=== PATIENT | female | born 1985 | race African-American/Black ===

== ENCOUNTER 2019-01-13 15:40 | Emergency (ER) | payer SELFPAY ==
[2019-01-13] MEDS ORDERED: LIDOCAINE 1% INJ-PF (10 MG/ML) 30 ML SDV INJ ONE (15:58)
--- NOTE | 2019-01-13 16:01 | ER Document Report ---
HPI - HPI Time Seen by Provider: 01/13/19 15:54 Pain Level: 4 Notes: Patient is a 33-year-old female with no significant past medical history who presents to the emergency department complaining of right index pain and swelling distally with possible infection over the last couple days. Patient does not recall any injury. She has noticed an abscess to the area that is not draining. Denies drug allergies. No other concerns or complaints. No history of MRSA. Denies any headache, fever, URI, sore throat, chest pain, palpitations, syncope, cough, shortness of breath, wheeze, dyspnea, abdominal pain, nausea/vomiting/diarrhea, urinary retention, dysuria, hematuria, or rash. - ROS Systems Reviewed and Negative: Yes All other systems reviewed and negative - REPRODUCTIVE Reproductive: DENIES: : Past Medical History - Social History Smoking Status: Never Smoker Family History: Reviewed & Not Pertinent Vertical Provider Document - CONSTITUTIONAL Agree With Documented VS: Yes Notes: PHYSICAL EXAMINATION: GENERAL: Well-appearing, well-nourished and in no acute distress. LUNGS: Breath sounds clear to auscultation bilaterally and equal. No wheezes rales or rhonchi. HEART: Regular rate and rhythm without murmurs, rubs, gallops. Musculoskeletal: Rt index finger: + paronychia noted with fluctuance/abscess. + tenderness associated. No felon. FROM to passive/active. Strength 5+/5. N/V intact distal. No bony tenderness or streaks noted. Extremities: No cyanosis, clubbing, or edema b/l. Peripheral pulses 2+. Capillary refill less than 3 seconds. NEUROLOGICAL: Normal speech, normal gait. Normal sensory, motor exams PSYCH: Normal mood, normal affect. SKIN: see above - INFECTION CONTROL TRAVEL OUTSIDE OF THE [place] IN LAST 30 DAYS: No Course - Re-evaluation Re-evalutation: 01/13/19 Patient is an afebrile, well-hydrated, 33-year-old female who presents to the e mergency department with a paronychia rt index finger needing incision and drainage. Vitals are acceptable without significant tachycardia, tachypnea, or hypoxia. PE is otherwise unremarkable. Patient is nontoxic-appearing and is tolerating p.o. without difficulty. Incision and drainage was performed without any complications. Wound dressing was placed and wound instructions reviewed. Wound culture was obtained. No further labs or imaging warranted. Low suspicion for any felon, sepsis, meningitis, SJS, osteomyelitis, or other systemic emergent condition at this time. Patient to monitor symptoms for any acute changes and seek medical attention if so. Recheck with your PCM in 2-3 days. Return to the ED with any worsening/concerning symptoms as reviewed. Patient is in agreement. - Vital Signs Vital signs: Temp Pulse Resp BP Pulse Ox 98.1 F 101 H 16 119/81 100 01/13/19 15:54 01/13/19 15:54 01/13/19 15:54 01/13/19 15:54 01/13/19 15:54 Procedures - Incision and Drainage Right Finger 2nd digit Time completed: 16:20 Type: Simple Anesthetic type: 1% Lidocaine mL's of anesthetic: 6 - digital block I&D procedure: Sterile dressing applied, Other - chlorhexadine/saline Incision Method: Incision made by scalpel Amount/type of drainage: moderate purulent Discharge - Discharge Clinical Impression: Paronychia of right index finger Condition: Stable Disposition: HOME, SELF-CARE Instructions: Paronychia (OM), Epsom Salt Soaks ([facility]) Additional Instructions: Keep the skin clean Wash with soap and water Tylenol/ibuprofen if needed Triple antibiotic ointment daily Take medication as directed Epsom salt soaks Monitor for any worsening symptoms Recheck with your PCM in 2-3 days Consider consult with Orthopedics for ongoing/worsening symptoms Return to the ED with any worsening symptoms and/or development of fever, headache, chest pain, palpitations, syncope, shortness of breath, trouble breathing, abdominal pain, n/v/d, abscess, purulent discharge, red streaks, worsening swelling, or other worsening symptoms that are concerning to you. Prescriptions: Cephalexin Monohydrate [Keflex 500 mg Capsule] 500 mg PO TID #30 capsule Sulfamethoxazole/Trimethoprim [Bactrim Ds Tablet] 1 each PO BID #20 tablet Referrals: HECTOR CRAMER MD [ACTIVE STAFF] - Follow up as needed PETEY ARROYO DO [ACTIVE STAFF] - Follow up as needed
[2019-01-13] MEDS ORDERED: ACETAMINOPHEN 325 MG TABLET PO ONE (17:13)
[2019-01-13] MEDS ORDERED: MORPHINE SULFATE IR 15 MG TABLET PO ONE (17:33)
[2019-01-13 17:59] VITALS: BP 104/81
[2019-01-13] MEDS ORDERED: OXYCODONE-ACETAMINOPHEN 5-325 MG TABLET PO ONE (18:03)
== END 2019-01-13 18:25 | disposition home or self-care (01) ==
LOC: ER 15:40
PROC: 0H9FXZZ Drainage of Right Hand Skin, External Approach (ICD-10-PCS; principal; 2019-01-13)
DX: L03.011 Cellulitis of right finger (principal); L02.511 Cutaneous abscess of right hand; M79.644 Pain in right finger(s)
CPT/HCPCS: 99283; 87070; 87205; 87186; 26010; J3490

== ENCOUNTER 2020-10-09 23:05 | Inpatient (IN) | payer MEDICAID, OTHER ==
[2020-10-10 00:02] LABS: T.VAGINALIS (WET MOUNT) NO TRICHOMONAS SEEN; WBCS (WET MOUNT) 3+ WBCS SEEN; YEAST (WET MOUNT) BUDDING YEAST SEEN
[2020-10-10 00:03] LABS: BACTERIA (WET MOUNT) 4+ BACTERIA SEEN; EPITHELIALS (WET MOUNT) 4+ EPITHELIALS SEEN; RBCS (WET MOUNT) RARE RBCS SEEN
[2020-10-10] MEDS ORDERED: OXYTOCIN 10 UNIT/ML VIAL ONE (00:10)
[2020-10-10] MEDS ORDERED: MISOPROSTOL 0.2 MG TABLET ONE (00:10)
[2020-10-10] MEDS ORDERED: PENICILLIN G-K 5 MILLION UNIT VIAL ONE ×2 (00:10→04:26)
[2020-10-10] MEDS ORDERED: LIDOCAINE 1% INJ-PF (10 MG/ML) 30 ML SDV ONE (00:10)
[2020-10-10] MEDS ORDERED: OXYTOCIN/0.9 % SODIUM CHLORIDE 30 UNIT/500 ML RTUINJ ONE (00:10)
[2020-10-10 00:11] LABS: ABSOLUTE LYMPHOCYTES (AUTO) 2.2 10^3/uL (0.5-4.7); ABSOLUTE MONOCYTES (AUTO) 0.7 10^3/uL (0.1-1.4); ABSOLUTE NEUT (AUTO) 7.7 10^3/uL (1.7-8.2); BASOPHILS % (AUTO) 0.2 % (0-2); EOSINOPHILS % (AUTO) 0.1 % (0-6); HEMATOCRIT 33.1 % (36.0-47.0); HEMOGLOBIN 10.7 g/dL (12.0-15.5); LYMPHOCYTES % (AUTO) 20.4 % (13-45); MEAN CORPUSCULAR HEMOGLOBIN 26.1 pg (27.0-33.4); MEAN CORPUSCULAR HGB CONC 32.4 g/dL (32.0-36.0); MEAN CORPUSCULAR VOLUME 80 fl (80-97); MONOCYTES % (AUTO) 6.3 % (3-13); PLATELET COUNT 304 10^3/uL (150-450); RED BLOOD COUNT 4.12 10^6/uL (3.72-5.28); RED CELL DISTRIBUTION WIDTH 13.9 % (11.5-14.0); TOTAL CELLS COUNTED % (AUTO) 100 %; WHITE BLOOD COUNT 10.6 10^3/uL (4.0-10.5)
[2020-10-10] MEDS ORDERED: BETAMET ACET/BETAMET NA INJ 6 MG/1 ML ONE (00:19)
[2020-10-10] MEDS ORDERED: FENTANYL CITRATE INJ/PF 100 MCG/2 ML AMPUL ONE (00:23)
[2020-10-10 00:24] LABS: APPEARANCE,URINE SLIGHTLY-CLOUDY; BILIRUBIN,URINE NEGATIVE (NEGATIVE); COLOR,URINE YELLOW; GLUCOSE, URINE NEGATIVE (NEGATIVE); KETONES,URINE 80 mg/dL (NEGATIVE); LEUKOCYTE ESTERASE,URINE NEGATIVE (NEGATIVE); NITRITE,URINE NEGATIVE (NEGATIVE); PROTEIN,URINE NEGATIVE (NEGATIVE); URINE SPECIFIC GRAVITY 1.018
[2020-10-10] MEDS ORDERED: NORMAL SALINE 250 ML IV PRN (00:28)
[2020-10-10] MEDS ORDERED: PENICILLIN G POTASSIUM 5,000,000 UNIT in DEXTROSE 5%-WATER 100 ML IV ONE (00:28)
[2020-10-10] MEDS ORDERED: RINGERS SOLUTION,LACTATED 1,000 ML IV PRN (00:28)
[2020-10-10] MEDS ORDERED: RINGERS SOLUTION,LACTATED 1,000 ML IV ONE (00:28)
[2020-10-10] MEDS ORDERED: EPHEDRINE SULFATE INJ 50 MG/1 ML AMPULE ONE (00:28)
[2020-10-10] MEDS ORDERED: ROPIVACAINE HCL 0.2% INJ/PF (2 MG/ML) 20 ML SDV ONE (00:29)
[2020-10-10] MEDS ORDERED: FENTANYL/BUPIVACAINE/NS/PF 300 MCG/150 ML RTUINJ EPI ONE (00:29)
[2020-10-10] MEDS ORDERED: BETAMET ACET/BETAMET NA INJ 6 MG/1 ML IM ONE (00:32)
[2020-10-10] MEDS ORDERED: FENTANYL CITRATE INJ/PF 100 MCG/2 ML AMPUL IV ONE (00:32)
[2020-10-10] MEDS ORDERED: ONDANSETRON HCL INJ/PF 4 MG/2 ML SDV IV PRN (00:36)
--- NOTE | 2020-10-10 00:46 | Admission Physical ---
Datetime Report Generated by CPN: 10/10/2020 00:46 CURRENT ADMISSION Chief Complaint: Uterine Contractions Indication for Induction: Not Applicable Admit Impression : Term, Intrauterine ; Active Labor; Intact Membranes Admit Plan: Admit to Unit; Initiate Labor Protocol ALLERGIES Medication Allergies: No Known Allergies (02/04/2014) PHYSICAL EXAM General: Normal HEENT: Normal Neurologic: Normal Thyroid: Deferred Heart: Normal Lungs: Normal Breast: Deferred Back: Normal Abdomen: Normal Genitourinary Exam: Normal Extremities: Normal DTRs: Normal Pelvic Type: Adequate Vital Signs: Reviewed VAGINAL EXAM Dilatation: 6 Effacement: 90 Station: bb Contraction Comments: q2 MEMBRANES Membranes: Intact FETUS A Monitoring: External US FHR- Baseline: 125 Variability: Moderate 6-25bpm Accelerations: 15X15 FHR Category: Category I Presentation: Vertex Admit Comment: 35yo here [facility] due to contractions since 2099 while incarcerated. She has had no care. She reports that she had DEBBIE 12/01/2020 by LMP but no US or Care. She had a C/S in 2013 with documented Low transverse incision (indication was OP, NRFHRTs, 6cm at 41wks). Reviewed TOLAC vs C/S. She has elected or now to proceed with TOLAC. GBS unknown - PCN for GBS prophy. No care labs ordered. She denies h/o HSV and denies prodrome or outbreak. Admit and anticipate /TOLAC. She desires pain medication. R/B/A reviewed. INFORMED CONSENT Informed Consent Obtained: Vaginal Delivery; Risks, Benefits and Alternatives Discussed Signature: with User ID: [email or web address]
[2020-10-10 00:57] LABS: URINE AMPHETAMINES SCREEN NEGATIVE; URINE BARBITURATES SCREEN NEGATIVE; URINE BENZODIAZEPINES SCREEN NEGATIVE; URINE MARIJUANA (THC) SCREEN NEGATIVE; URINE METHADONE SCREEN NEGATIVE; URINE PHENCYCLIDINE SCREEN NEGATIVE
[2020-10-10 01:03] LABS: URINE COCAINE SCREEN UNCONFIRMED POSITIVE
--- NOTE | 2020-10-10 01:14 | L&D Progress Notes ---
PROGRESS NOTES Datetime Report Generated by CPN: 10/10/2020 01:14 PROGRESS NOTE Informed Consent Obtained: Vaginal Delivery; Risks, Benefits and Alternatives Discussed Comment: Cocaine positive and opiate positive in urine. Pt reports no cocaine since prior to thanksgiving and used cocaine several times during . Opiates are from the percocet she gets from her mom. Patient now that she is comfortable desires to proceed with continued attempt at vaginal delivery. She is resting. Her answers are inconsistent when requesting medical history. VAGINAL EXAM Dilatation: 6 Effacement: 90 Station: bb Contractions: q2 MEMBRANES Membranes: Intact FETUS A Presentation: Vertex SIGNATURE SIGNATURE: [id number];13,[id number] Signature: with User ID: [email or web address]
[2020-10-10 01:58] LABS: CHLAM PCR NOT DETECTED (NOT DETECT)
[2020-10-10 04:38] LABS: APPEARANCE,URINE CLEAR; BILIRUBIN,URINE NEGATIVE (NEGATIVE); COLOR,URINE YELLOW; GLUCOSE, URINE NEGATIVE (NEGATIVE); KETONES,URINE 80 mg/dL (NEGATIVE); LEUKOCYTE ESTERASE,URINE NEGATIVE (NEGATIVE); NITRITE,URINE NEGATIVE (NEGATIVE); PROTEIN,URINE 30 mg/dL (NEGATIVE); UROBILINOGEN,URINE NEGATIVE mg/dL (<2.0)
[2020-10-10] MEDS: PENICILLIN G POTASSIUM 2,500,000 UNIT in DEXTROSE 5%-WATER 50 ML IV SCH ×2 (07:45→09:39)
[2020-10-10] MEDS ORDERED: LOPERAMIDE HCL 2 MG CAPSULE ONE (08:20)
[2020-10-10] MEDS ORDERED: LOPERAMIDE HCL 2 MG CAPSULE PO ONE (08:22)
[2020-10-10] MEDS ORDERED: LOPERAMIDE HCL 2 MG CAPSULE PO PRN (08:22)
--- NOTE | 2020-10-10 08:45 | Delivery Summary ---
Del Sum A-C Datetime Report Generated by CPN: 10/10/2020 08:45 DELIVERY PERSONNEL DELIVERY PERSONNEL: [id number] Delivery Doctor:: Jami King MD Labor and Delivery Nurse:: CARLEEN Simpson Nursery Nurse:: Abigail Eddy RN Nursery Nurse:: Madeline Holm RN Excel Expert/CLIMBING GUIDE: Deneen Green, ST MATERNAL INFORMATION Delivery Anesthesia: Epidural Medications After Delivery: Pitocin 30 Units in 500ml NS/D5W; Cytotec 1000mcg Per Rectum/Vagina Estimated Blood Loss (ml): 50 Delivery QBL: 50 Maternal Complications: None Other Maternal Complications: SROM 0345 particulate mec, pos UDS Provider Comments: VFI delivered in [place] with compound cord. Shoulders and body delivered without difficulty. Baby to maternal abdomen for NRP and nursery personnel present due to suspect 36wks, no care and SROM at 0345 with particulate meconium. Baby crying and with good tone on maternal abdomen and cord doubly clamped and cut after stop pulsating. baby to warmer with Nursery personnel. Placenta delivered spontaneously intact. Placental membranes and umbilical heavily stained with meconium. Placenta and cord sent for pathology. Cord gases not obtained as placenta was in vagina and delivered by the time baby was recieving recussitation. Baby to NICU. No perineal lacerations. 1000mcg Cytotec placed per rectum for uterine tone. Good hemostasis. FF at U. LABOR SUMMARY EDC: 11/05/2020 00:00 No. Babies in Womb: 1 Attempted: Yes Labor Anesthesia: Epidural LABOR INFORMATION Reason for Induction: Not Applicable Onset of Labor: 10/09/2020 21:00 Complete Dilatation: 10/10/2020 04:15 Oxytocin: N/A Group B Beta Strep: unk Antibiotics # of Doses: 1 Antibiotics Time of Last Dose: 10/10/2020 00:25 Name of Antibiotic Given: penicillin Steroids Given: Partial Course; < 24 Hours before Delivery Reason Steroids Not Administered: Not Applicable MEMBRANES Membranes Rupture Method: Spontaneous Rupture of Membranes: 10/10/2020 03:45 Length of Rupture (hr): 0.72 Amniotic Fluid Color: Moderate Meconium Amniotic Fluid Amount: Small Amniotic Fluid Odor: None STAGES OF LABOR Stage 1 hr: 7 Stage 1 min: 15 Stage 2 hr: 0 Stage 2 min: 13 Stage 3 hr: 0 Stage 3 min: 3 Total Time in Labor hr: 7 Total Time in Labor min: 31 VAGINAL DELIVERY Episiotomy: None Laceration #1: None Laceration Extension #1: N/A Laceration Repair: Not Applicable Sponge Count Correct: Yes Sharps Count Correct: Yes CSECTION DELIVERY Primary Indication: N/A Secondary Indication: N/A CSection Incidence: N/A Labor: N/A Elective: N/A BABY A INFORMATION Infant Delivery Date/Time: 10/10/2020 04:28 Method of Delivery: Vaginal Nurse Controlled Delivery: No Born in Route : No : Successful Forceps: N/A Vacuum Extraction: N/A Shoulder Dystocia : No PRESENTATION/POSITION BABY A Presentation: Cephalic Cephalic Presentation: Vertex Vertex Position: Left Occipital Anterior Breech Presentation: N/A PLACENTA INFORMATION BABY A Placenta Delivery Time : 10/10/2020 04:31 Placenta Method of Delivery: Spontaneous Placenta Status: Delivered SCORES BABY A Heart Rate 1 min: >100 bpm Resp Effort 1 min: Good Cry Reflex Irritability 1 min: Cough or Sneeze or Pulls Away Muscle Tone 1 min: Some Flexion of Extremities Color 1 min: Blue/Pale Resuscitation Effort 1 min: Tactile Stimulation; PPV/NCPAP SCORE 1 MIN: 7 Heart Rate 5 min: Slow, Below 100 bpm Resp Effort 5 min: Absent Reflex Irritability 5 min: Cough or Sneeze or Pulls Away Muscle Tone 5 min: Active Motion Color 5 min: Blue/Pale Resuscitation Effort 5 min: Tactile Stimulation; Oxygen; PPV/NCPAP SCORE 5 MIN: 5 Heart Rate 10 min: >100 bpm Resp Effort 10 min: Slow, Irregular Reflex Irritability 10 min: Cough or Sneeze or Pulls Away Muscle Tone 10 min: Active Motion Color 10 min: Completely [place] Resuscitation Effort 10 min: Oxygen; PPV/NCPAP SCORE 10 MIN: 9 INFANT INFORMATION BABY A Gestational Age at Delivery: 36.2 Gestational Status: Late - 34- 36.6 Weeks Infant Outcome : Liveborn Infant Condition : Stable Infant Sex: Female WEIGHT/LENGTH BABY A Birthweight (gm): 2810 Infant Weight (lb): 6 Infant Weight (oz): 3 Length (in): 19.25 Length (cm): 48.90 CORD INFORMATION BABY A No. Cord Vessels: 3 Nuchal Cord : N/A Cord Blood Taken: Yes-For Eval (Mom's Blood Type - or O+) Suction: Mouth; Nose ASSESSMENT BABY A Complications: Meconium Physical Findings- Other: see initial nursery assessment Respirations: Intercostal Retractions Manager Highway/ALS Called : Yes Infant Care By: L. Eddy, RN Transferred To: NICU BABY B INFORMATION : N/A SIGNATURES Signature: with User ID: [email or web address]
--- NOTE | 2020-10-10 08:45 | Birth Certificate Data ---
Cert Data Datetime Report Generated by CPN: 10/10/2020 08:45 CERTIFICATE DATA Delivery Provider: Jami King MD (10/10/2020 01:15:Vilma Wang RN) 47a. Care: No (10/10/2020 01:15:CARLEEN Simpson) 47b. Date of First Visit: 10/10/2020 00:00 (10/10/2020 01:15:CALREEN Simpson) 47c. Date of Last Visit: 10/10/2020 00:00 (10/10/2020 01:15:CARLEEN Simpson) 47d. Number of Visits: 0 (10/10/2020 01:15:CARLEEN Simpson) 48a. Number of Prev Live Births: 1 (10/10/2020 01:15:CARLEEN Simpson) 48b. Now Livin (10/10/2020 01:15:CARLEEN Simpson) 48c. Live Births Now : 0 (10/10/2020 01:15:QS system process) 48d. Date of Last Live : 05/22/2014 00:00 (10/10/2020 01:15:Lachelle Tapia, RNC) 48e. Losses: 0 (10/10/2020 01:15:Lachelle Bellavance, RNC) RISK FACTORS IN THIS 49a. Diabetes: No (10/10/2020 01:15:Lachelle Bellavance, RNC) 49b. Hypertension: No (10/10/2020 01:15:Lachelle Bellavance, RNC) 49c. Previous Births: 0 (10/10/2020 01:15:Lachelle Jeannce, RNC) 49d. Stillborns: No (10/10/2020 01:15:Lachelle Bellavance, RNC) 49d. IUGR: No (10/10/2020 01:15:Lachelle Bellavance, RNC) 49e. Infertility Treatment: No (10/10/2020 01:15:Lachelle Bellavance, RNC) 49f. Previous Cesareans: 1 (10/10/2020 01:15:Lachelle Bellavance, RNC) Mother's Height 50b. Height Inches: 64 (10/10/2020 01:38:QS system process) Mother's Weight 51b. Weight at Delivery (lbs): 152 (10/10/2020 01:38:QS system process) 52. Dt Last Normal Menses Began: 12/01/2020 00:00 (10/10/2020 01:15:CARLEEN Simpson) Infections Present/Treated 53a. Gonorrhea: No (10/10/2020 01:15:CARLEEN Simpson) Results this Hospital Visit : Negative (10/10/2020 01:15:Rebeka Parada RN) 53b. Syphilis: No (10/10/2020 01:15:CARLEEN Simpson) 53c. Chlamydia: No (10/10/2020 01:15:CARLEEN iSmpson) Results this Hospital Visit: Negative (10/10/2020 01:15:Rebeka Parada RN) 53d. Hepatitis B: No (10/10/2020 01:15:Lachelle Tapia RNC) Results this Hospital Visit: Negative (10/10/2020 01:15:Lachelle Tapia, RNC) 53h. Mother Tested for HBsAG: Yes (10/10/2020 01:15:Lachelle Tapia, RNC) 53i. Date Tested: 10/10/2020 00:00 (10/10/2020 01:15:Lachelle Tapia, RNC) 53j. Test Result: Negative (10/10/2020 01:15:Lachelle Tapia, RNC) Obstetric Procedures 54a, b, c. Obstetric Procedures: None (10/10/2020 01:15:Lachelle Courtneye, RNC) Cigarette Smoking Cigarette Smoking: Never Smoker. [id number] (10/10/2020 01:15:Lachelle Bellnewnce, RNC) Onset of Labor 56a. PROM >12 Hrs: 0.72 (10/10/2020 01:15:QS system process) 56b. Precipitous Labor <3 Hrs: 7 (10/10/2020 01:15:QS system process) 56c. Prolonged Labor > 20 Hrs: 7 (10/10/2020 01:15:QS system process) 57a. Induction of Labor: N/A (10/10/2020 01:15:Vilma Wang RN) 57c. Non-Vertex Presentation A: Vertex (10/10/2020 01:15:Vilma Wang RN) 57d. Steroids - Lung Mat: Partial Course; < 24 Hours before Delivery (10/10/2020 01:15:Jami King MD ([facility])) 57d. Steroids - Lung Mat: Celestone 12mg IM - Dose 1 (10/10/2020 00:25:CARLEEN Simpson) 57d. Steroids - Lung Mat: Not Applicable (10/10/2020 01:15:CARLEEN Simpson) 57e. Antibiotics During Labor: PCN (10/10/2020 01:15:Jami King MD ([facility])) 57e. Antibiotics During Labor: 10/10/2020 00:25 (10/10/2020 01:15:CARLEEN Simpson) 57g. Moderate/Heavy Meconium: Moderate Meconium (10/10/2020 03:45:CARLEEN Simpson) 57h. Intolerance of Labor: N/A (10/10/2020 01:15:Vilma Wang RN) : N/A (10/10/2020 01:15:Vilma Wang RN) 57i. Epidural/Spinal Anesthesia: Epidural (10/10/2020 01:15:CARLEEN Simpson) Method of Delivery 58a. Forceps - Unsuccessful A: N/A (10/10/2020 01:15:Vilma Wang RN) 58b. Vacuum - Unsuccessful A: N/A (10/10/2020 01:15:Vilma Wang RN) 58c. Presentation at 58c. Presentation at - A : Vertex (10/10/2020 01:15:Vilma Wang RN) 58c. Presentation at - A : N/A (10/10/2020 01:15:Vilma Wang RN) 58c. Presentation at - A : Cephalic (10/10/2020 03:45:Lachelle Tapia [facility]) Final Route and Method of Del 58d. Baby A Route/Delivery: Vaginal (10/10/2020 01:15:Vilma Wang RN) 58e. Trial of Labor Attempted: Yes (10/10/2020 01:15:Lachelle Tapia [facility]) 58e. Trial of Labor Attempted A: Successful (10/10/2020 01:15:Vilma Wang RN) 58e. Trial of Labor Attempted B: N/A (10/10/2020 01:15:Lachelle Tapia [facility]) Maternal Morbidity 59b. 3rd or 4th Degree Lacs: None (10/10/2020 01:15:Jami King MD ([facility])) Birthweight Baby A: 2810 (10/10/2020 01:15:Abigail Eddy, RN) 60a. Pounds : 6 (10/10/2020 01:15:QS system process) 60b. Ounces: 3 (10/10/2020 01:15:QS system process) 61. GA at Delivery Baby A: 36.2 (10/10/2020 01:15:Vilma Felipe, RN) : Late - 34- 36.6 Weeks (10/10/2020 01:15:QS system process) 62a. 5 Minute Baby A: 5 (10/10/2020 01:15:QS system process) 62b. 10 Minute Baby A: 9 (10/10/2020 01:15:QS system process)
--- NOTE | 2020-10-10 09:31 | RADIOLOGY REPORT (SQ) ---
EXAM DESCRIPTION: U/S OB LIMITED IMAGES COMPLETED DATE/TIME: 10/10/2020 1:25 am REASON FOR STUDY: dating, no pnc, placenta, position, fluid, cvx winnie COMPARISON: None. TECHNIQUE: Limited transvaginal grayscale ultrasound for evaluation of specific requested obstetrica l parameters. LIMITATIONS: None. FINDINGS: NIVIA: 1.9 cm. FHR: 137 beats per minute. PRESENTATION: Cephalic. PLACENTA: Fundal ANATOMY: Estimated weight 3064 g OTHER: No other significant findings. IMPRESSION: LIMITED OBSTETRICAL ULTRASOUND WITH MEASURED PARAMETERS DELINEATED ABOVE. Trimester of : Third trimester - 28 weeks to delivery. TECHNICAL DOCUMENTATION: JOB ID: [id number] 2010 [employer]- All Rights Reserved Reading location - IP/workstation name: [email or web address]
[2020-10-10] MEDS ORDERED: ACETAMINOPHEN 650 MG SUPP.RECT PR PRN (09:44)
[2020-10-10] MEDS ORDERED: MEASLES,MUMPS&RUBELLA VACC/PF 0.5 ML VIAL SUBCUT PRN (09:44)
[2020-10-10] MEDS ORDERED: DIPHENHYDRAMINE HCL 25 MG CAPSULE PO PRN (09:44)
[2020-10-10] MEDS ORDERED: PSEUDOEPHEDRINE HCL 30 MG TABLET PO PRN (09:44)
[2020-10-10] MEDS ORDERED: PROMETHAZINE HCL 25 MG TABLET PO PRN (09:44)
[2020-10-10] MEDS ORDERED: BENZOCAINE/MENTHOL AEROSOL SPRAY 56 ML TOP PRN (09:44)
[2020-10-10] MEDS ORDERED: PROMETHAZINE HCL INJ 25 MG/1 ML VIAL IV PRN (09:44)
[2020-10-10] MEDS ORDERED: OXYTOCIN/0.9 % SODIUM CHLORIDE 30 UNIT/500 ML RTUINJ IV PRN (09:44)
[2020-10-10] MEDS ORDERED: ZOLPIDEM TARTRATE 5 MG TABLET PO PRN (09:44)
[2020-10-10] MEDS ORDERED: NA PHOS,M-B/NA PHOS,DI-BA (ADULT) 133 ML ENEMA PR PRN (09:44)
[2020-10-10] MEDS ORDERED: GLYCERIN/WITCH HAZEL LEAF 1 EACH MED..WIPE TP PRN (09:44)
[2020-10-10] MEDS ORDERED: DIBUCAINE 1% OINTMENT 28 GM TP PRN (09:44)
[2020-10-10] MEDS ORDERED: ACETAMINOPHEN WITH CODEINE #3 TABLET PO PRN ×2 (09:44)
[2020-10-10] MEDS ORDERED: MAGNESIUM HYDROXIDE SUSP 30 ML UDCUP PO PRN (09:44)
[2020-10-10] MEDS ORDERED: DIPH/PERTUSS(ACELL)/TETANUS VAC/PF 0.5 ML SYR (>=10YO) IM PRN (09:44)
[2020-10-10] MEDS ORDERED: PROMETHAZINE HCL 25 MG SUPP.RECT PR PRN (09:44)
[2020-10-10] MEDS: PRENATAL VITAMIN W DHA CAPSULE PO SCH (11:11)
[2020-10-10] MEDS: DOCUSATE SODIUM 100 MG CAPSULE PO SCH ×2 (11:11→17:41)
[2020-10-10] MEDS: SENNOSIDES/DOCUSATE 8.6-50 MG 1 EACH TABLET PO SCH (11:11)
--- NOTE | 2020-10-10 12:18 | PDOC PROGRESS REPORT ---
Subjective-OB Progress Note for:: 10/10/20 Subjective: Pt doing well, no complaints. States pain is controlled, voiding w/o difficulty, reg diet, light bleeding w/o clots. Physical Exam (OB) Vital Signs: Intake & Output 10/09/20 10/10/20 10/11/20 06:59 06:59 06:59 Weight 69.4 kg - Maternal Morbidity 59. Maternal Morbidity (serious complications experinced by the mother associated with labor and delivery: None of the above - Lochia Lochia Amount: Small 10-25 ml Lochia Color: Rubra/Red - Abdomen Description: Soft Fundal Description: Firm Fundal Height: u/u - u/2 Objective-Diagnostic Laboratory: 10/09/20 23:48 10/09/20 10/09/20 10/09/20 23:20 23:48 23:48 WBC 10.6 H RBC 4.12 Hgb 10.7 L Hct 33.1 L MCV 80 MCH 26.1 L MCHC 32.4 RDW 13.9 Plt Count 304 Seg Neutrophils % 73.0 Urine Color YELLOW Urine Appearance SLIGHTLY-CLOUDY Urine pH 7.0 Ur Specific [place] 1.018 Urine Protein NEGATIVE Urine Glucose (UA) NEGATIVE Urine Ketones 80 H Urine Blood NEGATIVE Urine Nitrite NEGATIVE Ur Leukocyte Esterase NEGATIVE Urine WBC (Auto) 1 Urine RBC (Auto) 5 Blood Type O POSITIVE Antibody Screen NEGATIVE 10/10/20 01:10 WBC RBC Hgb Hct MCV MCH MCHC RDW Plt Count Seg Neutrophils % Urine Color YELLOW Urine Appearance CLEAR Urine pH 6.0 Ur Specific [place] 1.030 Urine Protein 30 H Urine Glucose (UA) NEGATIVE Urine Ketones 80 H Urine Blood NEGATIVE Urine Nitrite NEGATIVE Ur Leukocyte Esterase NEGATIVE Urine WBC (Auto) 1 Urine RBC (Auto) Blood Type Antibody Screen Assessment and Plan(PN) - Assessment and Plan (1) Active labor Qualifiers: Fetus number: single or unspecified fetus Qualified Code(s): O60.10X0 - labor with delivery, unspecified trimester, not applicable or unspecified Is this a current diagnosis for this admission?: Yes (2) Cocaine abuse affecting Qualifiers: Trimester: unspecified trimester Qualified Code(s): O99.320 - Drug use complicating , unspecified trimester; F14.10 - Cocaine abuse, uncomplicated Is this a current diagnosis for this admission?: Yes (3) History of delivery, currently Is this a current diagnosis for this admission?: Yes (4) Imprisonment and other incarceration Is this a current diagnosis for this admission?: Yes (5) No care in current Qualifiers: Trimester: third trimester Qualified Code(s): O09.33 - Supervision of with insufficient care, third trimester Is this a current diagnosis for this admission?: Yes (6) Use of nonprescription opiate drugs Is this a current diagnosis for this admission?: Yes (7) Vaginal after , delivered, current hospitalization Is this a current diagnosis for this admission?: Yes - Time Spent with Patient Time with patient: Less than 15 minutes Medications reviewed and adjusted accordingly: Yes - Disposition Anticipated Discharge Disposition: Home, Self Care Anticipated Discharge Timeframe: within 48 hours
[2020-10-10] MEDS: IBUPROFEN 800 MG TABLET PO SCH ×2 (14:16→22:42)
[2020-10-10] MEDS: FERROUS SULFATE 325 MG TABLET PO SCH (17:41)
[2020-10-10] MEDS: FAMOTIDINE 20 MG TABLET PO SCH (22:37)
[2020-10-11] MEDS: IBUPROFEN 800 MG TABLET PO SCH ×2 (05:26→13:47)
[2020-10-11 06:51] LABS: HEMOGLOBIN 9.4 g/dL (12.0-15.5); MEAN CORPUSCULAR HGB CONC 32.5 g/dL (32.0-36.0); MEAN CORPUSCULAR VOLUME 80 fl (80-97); PLATELET COUNT 246 10^3/uL (150-450); RED BLOOD COUNT 3.62 10^6/uL (3.72-5.28); RED CELL DISTRIBUTION WIDTH 13.9 % (11.5-14.0); WHITE BLOOD COUNT 16.5 10^3/uL (4.0-10.5)
[2020-10-11 07:37] LABS: HEPATITIS C VIRUS AB <0.1 s/co ratio (0.0-0.9)
[2020-10-11 09:13] VITALS: BP 105/69
[2020-10-11] MEDS: SENNOSIDES/DOCUSATE 8.6-50 MG 1 EACH TABLET PO SCH (10:24)
[2020-10-11] MEDS: DOCUSATE SODIUM 100 MG CAPSULE PO SCH (10:24)
[2020-10-11] MEDS: FERROUS SULFATE 325 MG TABLET PO SCH (10:24)
[2020-10-11] MEDS: FAMOTIDINE 20 MG TABLET PO SCH (10:25)
[2020-10-11] MEDS: PRENATAL VITAMIN W DHA CAPSULE PO SCH (10:25)
--- NOTE | 2020-10-11 13:25 | PDOC DISCHARGE SUMMARY ---
Impression - Admit/DC Date/PCP Admission Date/Primary Care Provider: 10/10/20 00:16 NED DUBON MD Discharge Date: 10/11/20 - Discharge Diagnosis (1) Active labor Is this a current diagnosis for this admission?: Yes (2) Anemia Is this a current diagnosis for this admission?: Yes (3) Cocaine abuse affecting Is this a current diagnosis for this admission?: Yes (4) History of delivery, currently Is this a current diagnosis for this admission?: Yes (5) Imprisonment and other incarceration Is this a current diagnosis for this admission?: Yes (6) No care in current Is this a current diagnosis for this admission?: Yes (7) Use of nonprescription opiate drugs Is this a current diagnosis for this admission?: Yes (8) Vaginal after , delivered, current hospitalization Is this a current diagnosis for this admission?: Yes - Additional Information Resuscitation Status: Full Code Discharge Diet: Regular Discharge Activity: Balance Activity w/Rest, Pelvic Rest Referrals: NED DUBON MD [Primary Care Provider] - Prescriptions: Ibuprofen [Motrin 800 mg Tablet] 800 mg PO Q8HP PRN #60 tablet PRN Reason: Home Medications: No.137/Iron/Folic Acd [ Vitamin Tablet] 1 each PO DAILY 02/02/14 Ibuprofen [Motrin 800 mg Tablet] 800 mg PO Q8HP PRN #60 tablet 10/11/20 HPI Gestational Age: 36.3 Reason(s) for Admission: Onset of Labor Procedures: NST, Ultrasound Intrapartum Procedure(s): Spontaneous Vaginal Delivery Hospital Course 59. Maternal Morbidity (serious complications experinced by the mother as sociated with labor and delivery: None of the above Results Laboratory Results: WBC 10.6 10^3/uL (4.0-10.5) H 10/09/20 23:48 RBC 4.12 10^6/uL (3.72-5.28) 10/09/20 23:48 Hgb 10.7 g/dL (12.0-15.5) L 10/09/20 23:48 Hct 33.1 % (36.0-47.0) L 10/09/20 23:48 MCV 80 fl (80-97) 10/09/20 23:48 MCH 26.1 pg (27.0-33.4) L 10/09/20 23:48 MCHC 32.4 g/dL (32.0-36.0) 10/09/20 23:48 RDW 13.9 % (11.5-14.0) 10/09/20 23:48 Plt Count 304 10^3/uL (150-450) 10/09/20 23:48 Lymph % (Auto) 20.4 % (13-45) 10/09/20 23:48 [place] % (Auto) 6.3 % (3-13) 10/09/20 23:48 Eos % (Auto) 0.1 % (0-6) 10/09/20 23:48 Baso % (Auto) 0.2 % (0-2) 10/09/20 23:48 Absolute Neuts (auto) 7.7 10^3/uL (1.7-8.2) 10/09/20 23:48 Absolute Lymphs (auto) 2.2 10^3/uL (0.5-4.7) 10/09/20 23:48 Absolute Monos (auto) 0.7 10^3/uL (0.1-1.4) 10/09/20 23:48 Absolute Eos (auto) 0.0 10^3/uL (0.0-0.6) 10/09/20 23:48 Absolute Basos (auto) 0.0 10^3/uL (0.0-0.2) 10/09/20 23:48 Seg Neutrophils % 73.0 % (42-78) 10/09/20 23:48 Urine Color YELLOW 10/10/20 01:10 Urine Appearance CLEAR 10/10/20 01:10 Urine pH 6.0 (5.0-9.0) 10/10/20 01:10 Ur Specific [place] 1.030 10/10/20 01:10 Urine Protein 30 mg/dL (NEGATIVE) H 10/10/20 01:10 Urine Glucose (UA) NEGATIVE mg/dL (NEGATIVE) 10/10/20 01:10 Urine Ketones 80 mg/dL (NEGATIVE) H 10/10/20 01:10 Urine Blood NEGATIVE (NEGATIVE) 10/10/20 01:10 Urine Nitrite NEGATIVE (NEGATIVE) 10/10/20 01:10 Urine Bilirubin NEGATIVE (NEGATIVE) 10/10/20 01:10 Urine Urobilinogen NEGATIVE mg/dL (<2.0) 10/10/20 01:10 Ur Leukocyte Esterase NEGATIVE (NEGATIVE) 10/10/20 01:10 Urine WBC (Auto) 1 /HPF 10/10/20 01:10 Urine RBC (Auto) 5 /HPF 10/09/20 23:20 Urine Bacteria (Auto) TRACE /HPF 10/10/20 01:10 Squamous Epi Cells Auto 2 /HPF 10/10/20 01:10 Urine Mucus (Auto) MOD /LPF 10/10/20 01:10 Urine Ascorbic Acid 40 (NEGATIVE) H 10/10/20 01:10 Membranes Rupture NEGATIVE (NEGATIVE) 10/10/20 00:07 Epi Cells (Wet Prep) 4+ EPITHELIALS SEEN 10/09/20 23:35 Bacteria (Wet Prep) 4+ BACTERIA SEEN 10/09/20 23:35 Trichomonas (Wet Prep) NO TRICHOMONAS SEEN 10/09/20 23:35 Vaginal WBC 3+ WBCS SEEN 10/09/20 23:35 Vaginal RBC RARE RBCS SEEN 10/09/20 23:35 Vaginal Yeast BUDDING YEAST SEEN 10/09/20 23:35 Urine Opiates Screen UNCONFIRMED POSITIVE 10/09/20 23:20 Urine Methadone Screen NEGATIVE 10/09/20 23:20 Ur Barbiturates Screen NEGATIVE 10/09/20 23:20 Ur Phencyclidine Scrn NEGATIVE 10/09/20 23:20 Ur Amphetamines Screen NEGATIVE 10/09/20 23:20 U Benzodiazepines Scrn NEGATIVE 10/09/20 23:20 Urine Cocaine Screen UNCONFIRMED POSITIVE 10/09/20 23:20 U Marijuana (THC) Screen NEGATIVE 10/09/20 23:20 Chlamydia DNA (PCR) NOT DETECTED (NOT DETECT) 10/09/20 23:20 HIV 1&2 Antibody NEGATIVE (NEGATIVE) 10/09/20 23:48 N.gonorrhoeae DNA (PCR) NOT DETECTED (NOT DETECT) 10/09/20 23:20 Rubella IgG Antibody 59.20 IU/mL 10/09/20 23:48 Rubella IgG Ab Interp POSITIVE 10/09/20 23:48 Blood Type O POSITIVE 10/09/20 23:48 Antibody Screen NEGATIVE 10/09/20 23:48 Crossmatch See Detail 10/09/20 23:48 Impressions: Obstetrics Ultrasound 12/04/20 00:00 IMPRESSION: LIMITED OBSTETRICAL ULTRASOUND WITH MEASURED PARAMETERS DELINEATED ABOVE. Trimester of : Third trimester - 28 weeks to delivery. Plan Plan of Treatment: f/u at [facility] for check in 4 wks Time Spent: Less than 30 Minutes
[2020-10-12 07:17] LABS: HEPATITS B SURFACE ANTIGEN Negative (Negative)
[2020-10-15 07:12] LABS: COCAINE METABOLITE CONFIRM UR Positive (.)
== END 2020-10-11 14:57 | disposition home or self-care (01) | DRG 805 ==
LOC: LC 23:05 → LR 10-10 00:16 → 2S 10-10 08:35
PROVIDERS: ADMIT Student in an Organized Health Care Education/Training Program; ATTEND Student in an Organized Health Care Education/Training Program
PROC: 10E0XZZ Delivery of Products of Conception, External Approach (ICD-10-PCS; principal; 2020-10-10)
DX: O34.211 Maternal care for low transverse scar from previous cesarean delivery (principal); O60.14X0 Preterm labor third trimester with preterm delivery third trimester, not applicable or unspecified; Z37.0 Single live birth; O99.324 Drug use complicating childbirth; Z20.828 Contact with and (suspected) exposure to other viral communicable diseases; O99.02 Anemia complicating childbirth; D64.9 Anemia, unspecified; F14.10 Cocaine abuse, uncomplicated; F11.90 Opioid use, unspecified, uncomplicated; Z3A.36 36 weeks gestation of pregnancy
CPT/HCPCS: 1967; 36415; 76815; 80307; 80353; 80361; 81001; 84112; 85025; 85027; 86592; 86701; 86762; 86803; 86804; 86850; 86900; 86901; 86920; 87081; 87210; 87340; 87491; 87591; 88307; 94760; 99465; G0480; J0702; J2540; J2590; J2795; J3010; J3490; J7060